=== PATIENT | female | born 1980 | race Caucasian/White ===

== ENCOUNTER 2022-05-26 12:10 | Emergency (ER) | payer MEDICAID, SELFPAY ==
--- NOTE | 2022-05-26 12:14 | EXP.UTC ---
Discharge Plan Disposition Patient Disposition: Home, Self-Care Condition: Good Prescriptions Prescriptions: New amoxicillin [amoxicillin] 500 mg tablet 500 mg PO TID 10 Days Qty: 30 0RF benzonatate [benzonatate] 100 mg capsule 100 mg PO TIDP PRN (Reason: Cough) Qty: 30 0RF methylprednisolone 4 mg Tablets,Dose Pack 4 mg PO DIRECTED Qty: 21 0RF Referrals Follow up/Referrals: Julian Morales MD [Primary Care Provider] - See instructions Activity Restrictions/Add. Instructions Additional Instructions/Restrictions: Drink plenty of fluids. Take tylenol or ibuprofen for pain or fever. Take the medications as directed. Follow up with your regular doctor. GO TO THE ER FOR ANY WORSENING SYMPTOMS Clinical Impressions Clinical Impression: Otitis media, Bronchitis Instructions Patient Instructions: Middle Ear Infection, DI for Sinusitis Discharge ED Provider: Ramakrishna Arce [facility] [place] [facility] [place] General Stated complaint: ear pain,headache Time Seen by Provider: 05/26/22 12:14 History of Present Illness Provider Complaint: She states that she has had bilateral ear pain, sore throat and a productive cough for the past 3 days. Related Data Previous Rx's Medication Instructions Recorded amoxicillin 500 mg tablet 500 mg PO TID 10 days #30 tabs 05/26/22 benzonatate 100 mg capsule 100 mg PO TIDP PRN Cough #30 caps 05/26/22 methylprednisolone 4 mg tablets in 4 mg PO DIRECTED #21 tabs 05/26/22 a dose pack Allergies Allergy/AdvReac Type Severity Reaction Status Date / Time No Known Allergies Allergy Verified 05/26/22 12:43 [facility] Disclaimer: The information contained in this section may have been updated after the patient was seen, as this information can be updated by other users. Social History Smoking Status: Never smoker alcohol intake: never current occupational status: employed Travel in the last 8 weeks: None ROS Obtained: Yes All systems reviewed & no additional complaints except as documented Constitutional Constitutional: Reports chills and Reports fever(s) Eyes Eyes: Denies eye discharge ENT Ears, Nose, Mouth, and Throat: Reports as per HPI Cardiovascular Cardiovascular: Denies chest pain Respiratory Respiratory: Denies chest congestion and Reports cough Gastrointestinal Gastrointestingal: Reports nausea; Denies abdominal pain, constipation, cramping, diarrhea or vomiting Musculoskeletal Musculoskeletal: Denies arthralgias Integumentary/Breasts Skin/Breast: Denies rash Neurologic Neurologic: Denies paresthesias Physical Exam General General appearance: alert and in no apparent distress Head Head exam: atraumatic, normocephalic and normal inspection Eye Eye exam: Present normal appearance, PERRL and EOMI ENT ENT exam: Present mucous membranes moist and normal external ear exam Expanded ENT Exam TM/Canal exam: Bilateral TM: erythema and bulging Nose exam: Absent sinus tenderness Mouth exam: Present normal external inspection; Absent drooling Teeth exam: Present normal inspection Throat exam: Present tonsillar erythema, tonsillomegaly and tonsillar exudate Neck Neck exam: Present normal inspection, full ROM and trachea midline; Absent tenderness, meningismus or lymphadenopathy Chest Chest inspection: Present normal inspection and symmetric chest wall rise; Absent tenderness Respiratory Respiratory exam: Present normal lung sounds bilaterally; Absent respiratory distress, wheezes or stridor Cardiovascular Cardiovascular exam: Present regular rate and normal rhythm; Absent systolic murmur or diastolic murmur Abdominal Exam Abdominal exam: Present soft and normal bowel sounds; Absent distention, tenderness, guarding, rebound or rigidity Extremities Exam Extremities exam: Present normal inspection and normal capillary refill; Absent calf tenderness Back Exam Back exam: Present normal inspection and full R
[2022-05-26 12:15] VITALS: BP 136/86; PULSE 118; RESP 16; TEMP 37.2; O2SAT 99; BMI 30.7
[2022-05-26 12:35] VITALS: BP 136/86; PULSE 118; RESP 16; TEMP 37.2; O2SAT 99; BMI 10.8
[2022-05-26 12:45] LABS: UTC Strep Screen (Rapid) Negative (Negative)
[2022-05-26 13:18] VITALS: BP 136/86; PULSE 118; RESP 16; TEMP 37.2; O2SAT 99
== END 2022-05-26 13:18 | disposition home or self-care (01) ==
PROVIDERS: Emergency Provider Nurse Practitioner Family; PCP Internal Medicine Adolescent Medicine
DX: H66.93 Otitis media, unspecified, bilateral (principal); J40 Bronchitis, not specified as acute or chronic
CPT/HCPCS: 87880; 99212; 99213; G0463

== ENCOUNTER 2022-05-31 08:09 | Emergency (ER) | payer MEDICAID, SELFPAY ==
[2022-05-31 08:14] VITALS: BP 141/101; PULSE 109; RESP 18; O2SAT 99; BMI 31.4
--- NOTE | 2022-05-31 08:17 | XR_ITS ---
FINAL REPORT CLINICAL HISTORY: CONGESTION AND RIB PAIN FINDINGS: A PA view of the chest and oblique views of the right ribs were obtained. There is no prior exam for comparison. The cardiac and mediastinal silhouettes are within normal limits. The lungs are clear. There is no pneumothorax. Oblique views of the right ribs reveal no displaced rib fracture. IMPRESSION: No acute right rib fracture and no pneumothorax. Reviewed, Interpreted and Dictated by Evelyn Hammer MD Transcribed by Marta Small Authenticated and [facility]
[2022-05-31 08:20] VITALS: BP 141/101; PULSE 109; RESP 18; TEMP 36.8; O2SAT 99; BMI 31.3
--- NOTE | 2022-05-31 08:49 | EXP.UTC ---
Discharge Plan Disposition Patient Disposition: Home, Self-Care Condition: Good Prescriptions Prescriptions: New azithromycin [Zithromax Z-Won] 250 mg tablet See Rx Instructions .ROUTE .COMPLEX 5 Days Qty: 6 0RF Rx Instructions: For 250 mg dose pack: take 500 mg today (day 1), then 250 mg for 4 days (days 2-5) guaifenesin [Mucinex] 600 mg tablet extended release 12hr 600 mg PO BID PRN (Reason: cough) Qty: 20 0RF fluticasone propionate [Flonase Allergy Relief] 50 mcg/actuation spray,suspension 1 spray intranasal DAILY Qty: 16 0RF Rx Instructions: administer into each nostril No Action amoxicillin [amoxicillin] 500 mg tablet 500 mg PO TID 10 Days Qty: 30 0RF benzonatate [benzonatate] 100 mg capsule 100 mg PO TIDP PRN (Reason: Cough) Qty: 30 0RF methylprednisolone 4 mg Tablets,Dose Pack 4 mg PO DIRECTED Qty: 21 0RF Referrals Follow up/Referrals: Jenn Huffman APRN [Primary Care Provider] - See instructions Activity Restrictions/Add. Instructions Additional Instructions/Restrictions: Start antibiotic today. Be sure to complete entire prescription even if feeling better Monitor temp. Tylenol every 4 hours as needed and / or ibuprofen every 6 hours as needed ( As long as your primary care physician has told you that it ok to take both. For fever/aches/pains ER if no less than 101 despite Tylenol or Motrin Humidifier/vaporizer or hot steamy shower Inhaler every 4-6 hours as needed like we discussed. If unsure how to use it, ask pharmacist to demonstrate how. Should help open airways and improve cough, wheezing, and shortness of breath Mucinex for your cough and cough suppressant only at night. Be sure to drink lots of water. Follow up IMMEDIATELY for new or worsening of symptoms OR no noticeable improvement over the next 48-72 hours. 911 immediately for any life threatening symptoms such as chest pain or difficulty breathing Clinical Impressions Clinical Impression: Bronchitis Sinusitis Qualifiers: Sinusitis location: unspecified location Chronicity: unspecified Qualified Code(s): J32.9 - Chronic sinusitis, unspecified Stand Alone Forms Stand Alone Forms: Work/School Release Instructions Patient Instructions: Sinusitis, DI for Sinusitis Discharge ED Provider: Candy Wray [facility] HPI General Stated complaint: cough,ribs hurt Mode of Arrival: Ambulatory Source of Information: Patient Limitations: No Limitations Time Seen by Provider: 05/31/22 08:49 Description of Symptoms (Recalled from Triage Doc. by RN): PATIENT C/O COUGH AND RIB PAIN. SHE STATES SHE WAS TREATED FOR BRONCHITIS AND A SINUS INFECTION ON FRIDAY BUT IS NOT BETTER HEENT Symptoms (Recalled from RN notes): No Resp Symptoms (Recalled from RN notes): Yes Skin Symptoms (Recalled from RN notes): No MS Symptoms (Recalled from RN notes): Yes Functional Status (Recalled from RN notes): WNL History of Present Illness Provider Complaint: Patient states that she was seen and treated on Friday for Bronchitits and sinusitis States that she has continued to have cough and and feels like she may have pulled something in her right ribs States that she has pain in right ribs with movement and cough Related Data Previous Rx's Medication Instructions Recorded amoxicillin 500 mg tablet 500 mg PO TID 10 days #30 tabs 05/26/22 benzonatate 100 mg capsule 100 mg PO TIDP PRN Cough #30 caps 05/26/22 methylprednisolone 4 mg tablets in 4 mg PO DIRECTED #21 tabs 05/26/22 a dose pack azithromycin 250 mg tablet See Rx Instructions PO .COMPLEX 5 05/31/22 (Zithromax Z-Won) days #6 tabs fluticasone propionate 50 1 spray intranasal DAILY #16 grams 05/31/22 mcg/actuation nasal spray,suspension (Flonase Allergy Relief) guaifenesin 600 mg tablet, 600 mg PO BID PRN cough #20 tabs 05/31/22 extended release 12 hr (Mucinex) Allergies Allergy/AdvReac Type Severity Reaction Status Date /
[2022-05-31 09:20] VITALS: BP 141/101; PULSE 109; RESP 18; TEMP 36.8; O2SAT 99
== END 2022-05-31 09:46 | disposition home or self-care (01) ==
PROVIDERS: Emergency Provider Nurse Practitioner; PCP Nurse Practitioner Family
DX: J40 Bronchitis, not specified as acute or chronic (principal); J32.9 Chronic sinusitis, unspecified
CPT/HCPCS: 71101; 99212; 99213; G0463

== ENCOUNTER 2023-03-30 14:38 | Emergency (ER) | payer MEDICAID, SELFPAY ==
[2023-03-30] VITALS (8 sets, daily range): BP systolic 153–177; BP diastolic 97–113; PULSE 99–144; RESP 13–26; TEMP 36.7–36.8; O2SAT 96–100; BMI 31.4
--- NOTE | 2023-03-30 14:47 | XR_ITS ---
PROCEDURE INFORMATION: Exam: XR Left Wrist Exam date and time: 03/30/2023 2:52 PM Age: 42 years old Clinical indication: Injury or trauma; Other: Dog bite; Wrist and hand; Left TECHNIQUE: Imaging protocol: Radiologic exam of the left wrist. Views: 3 or more views. COMPARISON: CR XR FOREARM LT 2V 03/30/2023 2:52 PM FINDINGS: Bones/joints: Lucencies in the distal aspect of the long finger metacarpal consistent with minimally displaced acute fracture. .. Soft tissues: Soft tissue swelling of the hand IMPRESSION: Lucencies in the distal aspect of the long finger metacarpal consistent with minimally displaced acute fracture. ..
--- NOTE | 2023-03-30 14:47 | XR_ITS ---
PROCEDURE INFORMATION: Exam: XR Left Hand Exam date and time: 03/30/2023 2:52 PM Age: 42 years old Clinical indication: Injury or trauma; Other: Dog bite; Wrist and hand; Left TECHNIQUE: Imaging protocol: Radiologic exam of the left hand. Views: 3 or more views. COMPARISON: CR XR FOREARM LT 2V 03/30/2023 2:52 PM FINDINGS: Bones/joints: There are lucencies in the distal aspect of the long finger metacarpal which may represent acute nondisplaced fractures.. Soft tissues: Soft tissue swelling of the hand IMPRESSION: There are lucencies in the distal aspect of the long finger metacarpal which may represent acute nondisplaced fractures..
--- NOTE | 2023-03-30 14:47 | XR_ITS ---
PROCEDURE INFORMATION: Exam: XR Left Forearm Exam date and time: 03/30/2023 2:52 PM Age: 42 years old Clinical indication: Injury or trauma; Other: Dog bite; Wrist and hand; Left TECHNIQUE: Imaging protocol: Radiologic exam of the left forearm. Views: 2 views. COMPARISON: CR XR HAND LT MIN 3V 03/30/2023 2:52 PM FINDINGS: Bones/joints: Minimally displaced Fracture in the distal aspect of the long finger metacarpal.. No fracture of the radial or ulnar shaft Soft tissues: Soft tissue swelling of the hand IMPRESSION: Minimally displaced Fracture in the distal aspect of the long finger metacarpal..
[2023-03-30 14:56] LABS: Basophils # 0.1 K/mm3 (0-0.2); Basophils % 1.2 % (0.1-2.0); Eosinophils # 0.2 K/mm3 (0.0-0.4); Eosinophils % 2.3 % (0.1-12.0); Hematocrit 45.3 % (37.0-47.0); Hemoglobin 15.6 g/dL (12.2-16.2); Lymphocytes # 2.7 K/mm3 (0.7-4.5); Lymphocytes % 29.3 % (10-50); Mean Corpuscular HGB Conc 34.3 g/dL (31.8-35.4); Mean Corpuscular Hemoglobin 33.5 pg (27.0-31.2); Mean Corpuscular Volume 97.6 fl (81-99); Mean Platelet Volume 7.9 fl (7.4-10.4); Monocytes # 0.2 K/mm3 (0.1-1.0); Monocytes % 2.2 % (1.7-9.3); Neutrophils # 6.1 K/mm3 (1.8-7.8); Platelet Count 339 K/mm3 (142-424); Red Blood Count 4.65 M/mm3 (4.20-5.40); Red Cell Distribution Width 13.2 % (11.5-17.5); White Blood Count 9.4 K/mm3 (4.8-10.8)
--- NOTE | 2023-03-30 14:56 | PC.NURSE ---
rad at bedside
[2023-03-30 15:01] LABS: Chloride 104 mmol/L (98-107); Potassium 3.6 mmoL/L (3.5-5.1); Sodium 138 mmol/L (136-145)
[2023-03-30 15:03] LABS: Blood Urea Nitrogen 15 mg/dl (7-17); Creatinine Clearance Estimated 114 mL/min (50-200); Estimated Glomerular Filt Rate 69 ml/min (>60); GFR (African American) 83 ML/MIN (>60)
[2023-03-30 15:04] LABS: Alanine Aminotransferase 36 U/L (12-78); Albumin Level 4.6 g/dl (3.5-5.0); Albumin/Globulin Ratio 1.4 (1.1-1.8); Alkaline Phosphatase 84 U/L (38-126); Anion Gap 12.6 mEq/L (5-15); Aspartate Amino Transferase 42 U/L (14-36); Bilirubin,Total 0.4 mg/dl (0.2-1.3); Carbon Dioxide 25 mmol/L (22.0-30.0); Globulin 3.3 g/dL (1.3-3.2); Total Protein,Serum 7.9 g/dl (6.3-8.2)
[2023-03-30 15:05] LABS: Calcium 9.5 mg/dl (8.4-10.2); Glucose 117 mg/dl (74-100)
--- NOTE | 2023-03-30 15:12 | HMH.EDGENADL ---
Discharge Plan Disposition Patient Disposition: Xfer Short-Term Hosp Prescriptions Prescriptions: No Action amoxicillin [amoxicillin] 500 mg tablet 500 mg PO TID 10 Days Qty: 30 0RF benzonatate [benzonatate] 100 mg capsule 100 mg PO TIDP PRN (Reason: Cough) Qty: 30 0RF methylprednisolone 4 mg Tablets,Dose Pack 4 mg PO DIRECTED Qty: 21 0RF azithromycin [Zithromax Z-Won] 250 mg tablet See Rx Instructions .ROUTE .COMPLEX 5 Days Qty: 6 0RF Rx Instructions: For 250 mg dose pack: take 500 mg today (day 1), then 250 mg for 4 days (days 2-5) guaifenesin [Mucinex] 600 mg tablet extended release 12hr 600 mg PO BID PRN (Reason: cough) Qty: 20 0RF fluticasone propionate [Flonase Allergy Relief] 50 mcg/actuation spray,suspension 1 spray intranasal DAILY Qty: 16 0RF Rx Instructions: administer into each nostril Referrals Follow up/Referrals: Provider,Referral, MD [Primary Care Provider] - See instructions Clinical Impressions Clinical Impression: Fingertip amputation, Fracture of metacarpal Dog bite of left hand Qualifiers: Encounter type: initial encounter Qualified Code(s): S61.452A - Open bite of left hand, initial encounter Laceration of hand, left Qualifiers: Encounter type: initial encounter Foreign body presence: without foreign body Qualified Code(s): S61.412A - Laceration without foreign body of left hand, initial encounter Instructions Patient Instructions: DI for Skin Abscess Discharge ED Provider: Francisco Srniivasan General Adult HPI <Francisco Srinivasan MD - Last Filed: 03/30/23 15:43> General Chief complaint: Skin/Abscess/Foreign Body Stated complaint: Hand Trauma Time Seen by Provider: 03/30/23 14:50 History of Present Illness HPI narrative: 42-year-old female history of hypertension not currently on anticoagulation presenting with dog bite to her left hand and forearm. This happened just prior to arrival. Patient does not know the dog, does not know if is vaccinated. Patient does not remember last tetanus. Patient has severe lacerations to her left hand and inability to bend left ring finger. Significant pain in her palm. No other trauma sustained. Related Data Previous Rx's Medication Instructions Recorded amoxicillin 500 mg tablet 500 mg PO TID 10 days #30 tabs 05/26/22 benzonatate 100 mg capsule 100 mg PO TIDP PRN Cough #30 caps 05/26/22 methylprednisolone 4 mg tablets in 4 mg PO DIRECTED #21 tabs 05/26/22 a dose pack azithromycin 250 mg tablet See Rx Instructions PO .COMPLEX 5 05/31/22 (Zithromax Z-Won) days #6 tabs fluticasone propionate 50 1 spray intranasal DAILY #16 grams 05/31/22 mcg/actuation nasal spray,suspension (Flonase Allergy Relief) guaifenesin 600 mg tablet, 600 mg PO BID PRN cough #20 tabs 05/31/22 extended release 12 hr (Mucinex) Allergies Allergy/AdvReac Type Severity Reaction Status Date / Time No Known Allergies Allergy Verified 05/26/22 12:43 PFS <Francisco Srinivasan MD - Last Filed: 03/30/23 15:43> PFS Disclaimer: The information contained in this section may have been updated after the patient was seen, as this information can be updated by other users. Social History (Updated 05/26/22 @ 18:49 by Ramakrishna Arce APRN) Smoking Status: Current every day smoker alcohol intake: never current occupational status: employed Travel in the last 8 weeks: None <Francisco Srinivasan MD - Last Filed: 03/30/23 15:43> ROS Obtained: Yes All systems reviewed & no additional complaints except as documented Physical Exam <Francisco Srinivasan MD - Last Filed: 03/30/23 15:43> General General appearance: alert and in distress (pain) Head Head exam: atraumatic and normocephalic Eye Eye exam: Present normal appearance, PERRL and EOMI ENT ENT exam: Present mucous membranes moist Neck Neck exam: Present normal inspection, full ROM and trachea midline Respiratory Respiratory exam: Absent respiratory distress, wheezes, stridor, ac
--- NOTE | 2023-03-30 15:35 | PC.NURSE ---
Called [facility] wants to see about transferring to hand surgery. Gave them pt demographics and transfer details. States they will call back. Images power-shared to [facility] & disc prepared.
--- NOTE | 2023-03-30 16:39 | PC.NURSE ---
Called [facility] to check on status of call from hand surgery. States you called at 330 and we got the images 30 minutes ago and the surgeons need time to review those images. They'll call you back when they review it . Dr. Will was informed of this and he states Well I don't need to take to hand surgery, I can talk to the transfer attending .
--- NOTE | 2023-03-30 16:46 | PC.NURSE ---
Dr. Will s/w Dr. Nunez, transfer Attending at [facility]
--- NOTE | 2023-03-30 16:51 | PC.NURSE ---
pt accepted to [facility] ER per Dr. Malone
--- NOTE | 2023-03-30 17:20 | PC.NURSE ---
Dr. Will at [facility] to update pt on POC.
--- NOTE | 2023-03-30 17:46 | PC.NURSE ---
attempting to call EMS
--- NOTE | 2023-03-30 17:49 | PC.NURSE ---
applied soaked gauze, wrapped with kerlix, and placed on a slab of ortho glass. Pt reports her pain is decreased to hand. [facility] notified for pt transport to [facility]. Report given to Boom MAJOR
--- NOTE | 2023-03-30 17:49 | PC.NURSE ---
EMS aware of need for transport.
== END 2023-03-30 18:32 | disposition short-term general hospital (02) ==
PROVIDERS: Emergency Medicine; Emergency Provider Emergency Medicine
DX: S51.852A Open bite of left forearm, initial encounter; S68.625A Partial traumatic transphalangeal amputation of left ring finger, initial encounter; S66.325A Laceration of extensor muscle, fascia and tendon of left ring finger at wrist and hand level, initial encounter; I10 Essential (primary) hypertension; F17.210 Nicotine dependence, cigarettes, uncomplicated; Z23 Encounter for immunization; W54.0XXA Bitten by dog, initial encounter
CPT/HCPCS: 73090; 73110; 73130; 80053; 85025; 90375; 90675; 90715; 96365; 96372; 96375; 96376; 99285; J0690

== ENCOUNTER 2023-04-05 19:32 | Emergency (ER) | payer MEDICAID, SELFPAY ==
[2023-04-05 19:34] VITALS: BP 148/89; PULSE 88; RESP 20; TEMP 36.8; O2SAT 98; BMI 30.7
--- OUTSIDE RECORDS SUMMARY | 2023-04-05 19:40 | XMS_ITS | Patient Health Record ---
Author Name Unknown Organization [facility] Address [address] [place] [address] Care Team Providers Care Software Project Manager Name Role Phone Julian Morales Primary Care Provider [phone] Jenn Sharma Unavailable [phone] Julian Morales Unavailable Unavailable eLxus Andrade Unavailable [phone] Lexus Reyez Unavailable [phone] ALLERGIES No Known Allergies REASON FOR REFERRAL Reason Dr. Poole Diagnosis 1 Clavus (L84) Referral Organization [facility] Referring Provider First Name Jenn Referring Provider Last Name Zachary Referring Provider Speciality Family Pra ctice Referred Provider Karen Poole Referred Provider Specialty Podiatry - S urgical Chiropody General Notes Rupali Galvan 04/12 02:41:40 PM EST > sent/ they will call patient/gave patient their number to follow up Referral Priority Routine MEDICATIONS Medication SIG (Take, Route, Frequency, Duration) Notes Start Date End Date Status metroNIDAZOLE topical 0.75% 1 patrice applie d topically once a day (at bedtime) for 30 days 07/25/2022 Active hydrOXYzine hydrochloride hydrochloride 25 mg 1 tab(s) orally 2 times a day PRN for 30 days 02/21/2022 Active Xyzal 5 mg 1 tab(s) orally inga y for 30 days Active lisinopril 20 mg
--- NOTE | 2023-04-05 20:04 | HMH.EDGENADL ---
Discharge Plan Disposition Patient Disposition: Home, Self-Care Prescriptions Prescriptions: No Action amoxicillin [amoxicillin] 500 mg tablet 500 mg PO TID 10 Days Qty: 30 0RF benzonatate [benzonatate] 100 mg capsule 100 mg PO TIDP PRN (Reason: Cough) Qty: 30 0RF methylprednisolone 4 mg Tablets,Dose Pack 4 mg PO DIRECTED Qty: 21 0RF azithromycin [Zithromax Z-Won] 250 mg tablet See Rx Instructions .ROUTE .COMPLEX 5 Days Qty: 6 0RF Rx Instructions: For 250 mg dose pack: take 500 mg today (day 1), then 250 mg for 4 days (days 2-5) guaifenesin [Mucinex] 600 mg tablet extended release 12hr 600 mg PO BID PRN (Reason: cough) Qty: 20 0RF fluticasone propionate [Flonase Allergy Relief] 50 mcg/actuation spray,suspension 1 spray intranasal DAILY Qty: 16 0RF Rx Instructions: administer into each nostril Referrals Follow up/Referrals: Jenn Sharma APRN [Primary Care Provider] - See instructions Activity Restrictions/Add. Instructions Additional Instructions/Restrictions: Given the extent of your injuries your wound appears to be healing well there is still adequate capillary refill and vascular supply to your finger with some intact sensation there is no pathologic redness or pus coming from the wound and the drainage is serosanguineous. You have an appointment in [address] Naranjo with [facility] plastic surgery I would keep that appointment. Given your discontentment without group we have also given you follow-up appoint with Dr. Denis and Nelly if you'd wish to follow up with them as well. The 3 days of opiates is a standard prescription after an acute injury and he may take Tylenol or ibuprofen as needed for your symptoms. Clinical Impressions Clinical Impression: Encounter for assessment of wound Discharge ED Provider: Aftab Moreau General Adult HPI General Stated complaint: AO 03/31 ring fingr LT hand swelling Time Seen by Provider: 04/05/23 19:46 History of Present Illness HPI narrative: Patient is a 42-year-old female who had a dog bite on 1119 was transferred [facility] was evaluated by plastic surgery and had surgical repair of her left index finger was prescribed Augmentin and pain medication and she presents today to the emergency department for wound reassessment and pain. She states she was very unhappy with the care that she had at [facility] mainly because she was discharged at 2 AM and states I will not go back to them. Related Data Previous Rx's Medication Instructions Recorded amoxicillin 500 mg tablet 500 mg PO TID 10 days #30 tabs 05/26/22 benzonatate 100 mg capsule 100 mg PO TIDP PRN Cough #30 caps 05/26/22 methylprednisolone 4 mg tablets in 4 mg PO DIRECTED #21 tabs 05/26/22 a dose pack azithromycin 250 mg tablet See Rx Instructions PO .COMPLEX 5 05/31/22 (Zithromax Z-Won) days #6 tabs fluticasone propionate 50 1 spray intranasal DAILY #16 grams 05/31/22 mcg/actuation nasal spray,suspension (Flonase Allergy Relief) guaifenesin 600 mg tablet, 600 mg PO BID PRN cough #20 tabs 05/31/22 extended release 12 hr (Mucinex) Allergies Allergy/AdvReac Type Severity Reaction Status Date / Time No Known Allergies Allergy Verified 05/26/22 12:43 [facility] Disclaimer: The information contained in this section may have been updated after the patient was seen, as this information can be updated by other users. Social History (Updated 05/26/22 @ 18:49 by Ramakrishna Arce APRN) Smoking Status: Current every day smoker alcohol intake: never current occupational status: employed Travel in the last 8 weeks: None ROS Obtained: Yes All systems reviewed & no additional complaints except as documented Physical Exam General General appearance: alert Respiratory Respiratory exam: Present normal lung sounds bilaterally Cardiovascular Cardiovascular exam: Present regular rate Extremities Exam Ex
[2023-04-05 20:22] VITALS: BP 148/89; PULSE 90; RESP 18; TEMP 36.6; O2SAT 100
--- NOTE | 2023-04-05 20:25 | PC.NURSE ---
Patient requested 2nd opinion on hand surgeon so we gave her information on [facility]. Patient voiced understanding on importance of following up with her surgeron on 4 days and what problems to look out for. Patient left ER walking on own.
== END 2023-04-05 20:34 | disposition home or self-care (01) ==
PROVIDERS: Emergency Provider Student in an Organized Health Care Education/Training Program; PCP Nurse Practitioner Family
DX: R22.31 Localized swelling, mass and lump, right upper limb (principal); F17.210 Nicotine dependence, cigarettes, uncomplicated; Z48.89 Encounter for other specified surgical aftercare
CPT/HCPCS: 99282

== ENCOUNTER 2025-02-27 13:13 | Emergency (ER) | payer MEDICAID, SELFPAY ==
--- OUTSIDE RECORDS SUMMARY | 2023-11-28 05:30 | XMS_ITS ---
Author Organization [facility] Address [address] [place] [address] Care Team Providers Care Hoop Punch And Coiler Operator Helper Name Role Phone Julian Morales Primary Care Provider [phone] Jenn Sharma Unavailable [phone] Julian Morales Unavailable Unavailable Lexus Reyez Unavailable [phone] REASON FOR VISIT Med Check Encounters Encounter Location Date Provider Diagnosis [facility] [address] [facility] [address] [place] [address] 11/28/2023 Lexus Reyez Plan Of Treatment No Information Progress Notes * Kiara RICHARDSONB: 9[birth year] (44 yo F)Acc No.[id number]:11/28/2023 Progress Notes Patient: Parisa AWKEFIELD Provider: CARLOS Rosales :1980 A ge:43 Y S ex:Female Date:11/28/2023 Address:[address], [place] Pcp:Julian Morales Subjective: * Chief Complaints: * 1 . Med Check. * Medical History: Objective: * Vitals: Assessment: Plan: * Treatment: * * Electronic signature of Alesia Reyez PA-C on 02/27/2025 at 01:26 PM EDT Sign off status: Pending * Provider: CARLOS Rosales Date: 0 11/28/2023 Generated for Printi ng/Faxing/eTransmitting on: 1 01:26 PM EDT
--- OUTSIDE RECORDS SUMMARY | 2024-08-14 17:30 | XMS_ITS ---
Author Organization [facility] Address [address] [facility] [address] [place] [address] Care Team Providers Care Checkout Operator Name Role Phone Julian Morales Primary Care Provider [phone] Jenn Sharma Unavailable [phone] Julian Morales Unavailable Unavailable Migration, Provider Unavailable Unavailable REASON FOR VISIT [facility] To [facility] Conversion Encounter Medications Medication SIG (Take, Route, Frequency, Duration) Notes Start Date End Date Status metroNIDAZOLE 0.75 % 1 patrice applied topic ally once a day (at bedtime); Duration: 30 days 07/25/2022 Active Xyzal Allergy 24HR 5 MG 1 tab(s) orally daily; Duration: 30 days Active Escitalopram Oxalate 10 MG 1 tab(s) oral ly once a day; Duration: 30 days 02/21/2022 Active hydrOXYzine HCl 25 MG 1 tab(s) orally 2 times a day PRN; Duration: 30 days 02/21/2022 Active Ibuprofen 800 MG 1 tab(s) orally 3 ti mes a day; Duration: 30 day(s) prn Active Lisinopril 20 MG 1 tab(s) orally once a day; Duration: 30 day(s) Active Encounters Encounter Location Date Provider Diagnosis [facility] [address] [facility] [address] [place] [address] 08/14/2024 Provider Migration Rosacea L71.9 ; Strain of lumbar region, initial encounter S39.012A ; Seasonal allergies J30.2 and ADAN (generalized anxiety disorder) F41.1 Assessments Encounter Date Diagnosis (ICD Code) Assessment Notes Treatment Notes Treatment Clinical Notes Section Notes 08/14/2024 Rosacea (ICD-10 - L71.9) 08/14/2024 Strain of lumbar region, initial encounter (ICD-10 - S39.012A) 08/14/2024 Seasonal allergies (ICD-10 - J30.2) 08/14/2024 ADAN (generalized anxiety disorder) (ICD-10 - F41.1) Plan Of Treatment Medication Medication Name Sig Start Date Stop Date Notes metroNIDAZOLE 0.75 % 1 patrice applied topic ally once a day (at bedtime); Duration: 30 days 07/25/2022 Xyzal Allergy 24HR 5 MG 1 tab(s) orally daily; Duration: 30 days Escitalopram Oxalate 10 MG 1 tab(s) oral ly once a day; Duration: 30 days 02/21/2022 hydrOXYzine HCl 25 MG 1 tab(s) orally 2 times a day PRN; Duration: 30 days 02/21/2022 Ibuprofen 800 MG 1 tab(s) orally 3 ti mes a day; Duration: 30 day(s) prn Progress Notes * Kiara BELTRANB: 981 (44 yo F)Acc No.[id number]:08/14/2024 Patient: Xu WAKEFIELDa Provider: Rimma Snell :1980 A ge:44 Y S ex:Female Date:08/14/2024 Address:[address] [place] [address], [facility], [id number] Pcp:Julian Morales Subjective: * Chief Complaints: * 1 . [facility] Conversion Encounter. * Medical History: * Medications: T aking Lisinopril 20 MG Tablet 1 tab(s) orally once a day Objective: * Vitals: Assessment: * Assessment: 1. R osacea - L71.9 (Primary) 2 . S train of lumbar region, initial encounter - S39.012A 3 . S easonal allergies - J30.2 4 . G AD (generalized anxiety disorder) - F41.1 Plan: * Treatment: 2. S train of lumbar region, initial encounter Refill Ibuprofen Tablet, 800 MG, 1 tab(s), orally, 3 times a day, 30 day(s), 90 Tablet, Refills 0, Notes to Pharmacist: prn. 3. S easonal allergies Refill Xyzal Allergy 24HR Tablet, 5 MG, 1 tab(s), orally, daily, 30 days, 30, Refills 11. ? 4. G AD (generalized anxiety disorder) Refill Escitalopram Oxalate Tablet, 10 MG, 1 tab(s), orally, once a day, 30 days, 30, Refills 2;?Refill hydrOXYzine HCl Tablet, 25 MG, 1 tab(s), orally, 2 times a day PRN, 30 days, 60, Refills 2. * * Electronic signature of Prov ider Migration on 02/27/2025 at 01:27 PM EDT Sign off status: Pending * Provider: Rimma walton Migration Date: 0 08/14/2024 Generated for Devorah lim/Alec/Shae on: 1 01:27 PM EDT
[2025-02-27 13:20] VITALS: BP 162/116; PULSE 104; RESP 20; TEMP 36.8; O2SAT 99; BMI 32.3
--- NOTE | 2025-02-27 13:20 | ED_ITS ---
<Statement entered by Aftab Moreau MD - 02/27/25 14:27> I was consulted by the KENDRICK, and we discussed the complexity of the problems being addressed. I approved the treatment and management plan for this patient's care in the emergency department, thus performing a substantive portion of the medical decision making. Aftab Moreau MD, ANGELO, FACEP Discharge Plan Disposition Patient Disposition: Home, Self-Care Condition: Good Prescriptions Prescriptions: No Action amoxicillin [amoxicillin] 500 mg tablet 500 mg PO TID 10 Days Qty: 30 0RF benzonatate [benzonatate] 100 mg capsule 100 mg PO TIDP PRN (Reason: Cough) Qty: 30 0RF methylprednisolone 4 mg Tablets,Dose Pack 4 mg PO DIRECTED Qty: 21 0RF azithromycin [Zithromax Z-Won] 250 mg tablet See Rx Instructions .ROUTE .COMPLEX 5 Days Qty: 6 0RF Rx Instructions: For 250 mg dose pack: take 500 mg today (day 1), then 250 mg for 4 days (days 2-5) guaifenesin [Mucinex] 600 mg tablet extended release 12hr 600 mg PO BID PRN (Reason: cough) Qty: 20 0RF fluticasone propionate [Flonase Allergy Relief] 50 mcg/actuation spray,suspension 1 spray intranasal DAILY Qty: 16 0RF Rx Instructions: administer into each nostril Referrals Follow up/Referrals: Jenn Sharma APRN [Primary Care Provider, Medical] - See instructions Activity Restrictions/Add. Instructions Additional Instructions/Restrictions: Please return to the emergency department with any worsening signs or symptoms. Please take all your at home medication as prescribed. Please follow-up with your PCP. Clinical Impressions Clinical Impression: History of alcohol use, Medical clearance for incarceration Instructions Patient Instructions: DI for Alcohol Use Disorder Print Language Print Language: Cape Verdean Discharge ED Provider: Aftab Moreau General Adult HPI General Chief complaint: Medical Clearance Stated complaint: medical clearance Time Seen by Provider: 02/27/25 13:19 Source of Information: Patient and Law Enforcement Limitations: No Limitations History of Present Illness HPI narrative: 44-year-old female presents to the emergency department via PD, for acute alcohol intoxication. Patient at my examination at the bedside is GCS 15 alert oriented cooperative with exam, she adamantly denies any fever chills chest pain shortness of breath, no abdominal pain, no nausea no vomiting no constipation no diarrhea, no urinary type symptomatology, patient is a current everyday smoker, weekly alcohol use, last use was 8 AM , patient states she drank half a pint , states that she does this around 3 to 4 days a week. She does tell me it is not as much alcohol as I used to do , denies any illicit drug use. Initial triage vitals notable for tachycardia otherwise unremarkable, patient tells me she has past medical history consistent with hypertension and surgical history consistent with tubal ligation, however patient tells me she takes no medications daily at home. Please note that above description of symptoms, in this electronic medical rec ord under categorization of recalled from ER triage doctor by RN are reflective of an initial nursing assessment, however, is not reflective of my full history and physical exam that was personally taken and clarified. Consequentially, this preceding description of symptoms, which may include the patient's categorized chief complaint in the EMR, do not reflect my personal clinical impression, and the ultimate description of history of present illness and patient stated complaints should be deferred to this section of the note. Unless stated otherwise or congruent with this section of the note, additional signs, symptoms, or incongruence should be interpreted as inaccurate with my clinical impression. Onset (ago): unknown Related Data Previous Rx's ?Medication ?Instructions ?Recorded amoxicillin 500 mg tablet 500 mg PO TID 10 days #30 ta bs 05/26/22 benzonatate 100 mg capsule 100 mg PO TIDP PRN Cough #3 0 caps 05/26/22 methylprednisolone 4 mg tablets in 4 mg PO DIRECTED #21 tabs 05/26/22 a dose pack azithromycin 250 mg tablet See Rx Instructions PO .COM PLEX 5 05/31/22 (Zithromax Z-Won) days #6 tabs fluticasone propionate 50 1 spray intranasal DAILY #16 grams 05/31/22 mcg/actuation nasal spray,suspension (Flonase Allergy Relief) guaifenesin 600 mg tablet, 600 mg PO BID PRN cough #20 tabs 05/31/22 extended release 12 hr (Mucinex) Allergies Allergy/AdvReac Type Severity Reaction Status Date / Time No Known Allergies Allergy Verified 05/26/22 12:43 [facility] Disclaimer: The information contained in this section may have been updated after the patient was seen, as this information can be updated by other users. Social History (Updated 05/26/22 @ 18:49 by Ramakrishna rAce APRN) Smoking Status: Current every day smoker alcohol intake: never current occupational status: employed Travel in the last 8 weeks?: None Have you lived/traveled outside US in past 30 days?: No Contact w/someone who lives/traveled outside US past 30 days?: No Exposure to someone with infectious disease in past 14 days?: No Do you have a fever (greater than 100.4 F or 38 C)?: No Have you tested positive for COVID-19?: No Exposed to someone with COVID-19 in past 14 days?: No Do you have a sore throat?: No Do you have a cough?: No Do you have any weakness?: No Do you have any diarrhea?: No Are you experiencing any unusual bleeding?: No Do you have any muscle aches/pain?: No Do you have any abdominal pain?: No Are you experiencing loss of taste or smell?: No ROS Obtained: Yes All systems reviewed & no additional complaints except as documented Physical Exam General General appearance: alert, in no apparent distress and appears intoxicated Head Head exam: atraumatic and normocephalic Eye Eye exam: Present PERRL and EOMI ENT ENT exam: Present mucous membranes moist Neck Neck exam: Present normal inspection Chest Chest inspection: Present normal inspection and symmetric chest wall rise Respiratory Respiratory exam: Present normal lung sounds bilaterally; Absent respiratory distress, wheezes or stridor Cardiovascular Cardiovascular exam: Present regular rate and normal rhythm Abdominal Exam Abdominal exam: Present soft; Absent tenderness, guarding, rebound or rigidity Extremities Exam Extremities exam: Present normal inspection and full ROM Neurological Exam Neurological exam: Present alert, oriented X3 and other (Moves extremities to command, GCS of 15, alert oriented to person place and time, follows commands, no gross sensation deficit.) Psychiatric Psychiatric exam: Present normal affect Skin Skin exam: Present warm and dry Medical Decision Making Medical Records Medical records reviewed: Yes I reviewed the patient's medical records. Screening: Per USPSTF and CDC recommendations, given the prevalence of disease in our region, it is our hospital?s policy to screen for HIV and viral Hepatitis for all patients aged 18 and over and those with ongoing risk factors. Macario Inquiry Pt receiving controlled substance: No Vital Signs: 02/27/25 13:20 Temperature 98.2 F Temperature Source Oral Pulse Rate [Left Radial] 104 H Respiratory Rate 20 Blood Pressure [Right Arm] 162/116 H Blood Pressure Mean [Right Arm] 131 02 Sat by Pulse Oximetry 99 Oxygen Delivery Method Room Air Medical Decision Narrative: 44-year-old female presents the emergency department for medical clearance via PD, differential diagnose include but not limited to, alcohol use disorder, substance use disorder, acute alcohol intoxication among others. I discussed this patient's case with the attending physician Dr. Moreau Patient the bedside has no acute signs or symptoms, she admits to drinking alcohol this morning, appears mildly intoxicated, appears to be at her baseline, patient tells me she is frequent alcohol user. See HPI for alcohol use frequency. Patient's tachycardia improved to around 90 bpm, at the bedside upon my examination and recheck of her vital signs, blood pressure improved to 146 systolic, patient tells me she will follow-up with her PCP. Patient is medically cleared for incarceration/senior living. Patient was given strict ED return precautions. She is remained hemodynamically stable throughout her time in the emergency department. Patient voiced understanding and agreement with current treatment plan/discharge plan. Critical Care Critical Care Time Critical Care Time: No
--- OUTSIDE RECORDS SUMMARY | 2025-02-27 13:27 | XMS_ITS | Clinical Summary ---
Author Organization Healthcare Address [address] [place] [address] Care Team Providers Care Brake Press Operator Name Role Phone Jenn Huffman MARICRUZ Primary Care Provider [phone] Allergies No known active allergies Medications levocetirizine (Xyzal) 5 MG tablet Take 1 tablet (5 mg) by mouth 1 (one) time each day. 03/20/2023 Active Active Problems Problem Noted Date Diagnosed Date Left hand pain 04/30/2023 Social History Tobacco Use Types Packs/Day Years Used Date Smoking Tobacco: Every Day Cigarettes 1 24.8 Started: 2000 Smokeless Tobacco: Never Tobacco Cessation:Ready to Q uit: Not Asked; Counseling Given: Not Answered Alcohol Use Standard Drinks/Week Comments Yes 7 (1 standard drink = 0.6 oz pur e alcohol) PHQ-2 Answer Date Recorded Patient Health Questionnaire-2 Score 0 04/30/2023 CAGE ASSESSMENT Answer Date Recorded Due to the following: Medical status 03/30/2023 Maximum number of drinks you had on a given occasion in the last month? 5 or more drinks 03/30/2023 How many alcoholic Beverages do you typically drink in a week? 0 - 7 per week 03/30/2023 Have you ever felt you shoul d CUT down on your drinking? 1 03/30/2023 Have you been ANNOYED by peo ple criticizing your drinking? 1 03/30/2023 Have you felt GUILTY about your drinking? 1 03/30/2023 Have you had a drink first t mona in the morning ([employer]) to steady your nerves or to get rid of a hangover? 1 03/30/2023 CAGE Questionnaire Score 4 023 Comments Unknown Sex and Gender Information Value Date Recorded Sex Assigned at Female 05/10/2023 3:24 AM EST Legal Sex Female 3:38 PM EST Gender Identity Female 05/10/2023 3:24 AM EST Sexual Orientation Straight 05/10/2023 3: 24 AM EST Last Filed Vital Signs Vital Sign Reading Time Taken Comments Blood Pressure 173/105 04/30/2023 4:29 PM EST Pulse 94 04/30/2023 4:29 PM EST Temperature 36.9 C (98.4 F) 03/30/2023 11:51 PM EST Respiratory Rate 17 03/31/2023 12:04 AM EST Oxygen Saturation 99% 04/30/2023 4:29 PM EST Inhaled Oxygen Concentration - - Weight 91.6 kg (202 lb) 04/30/2023 4:29 PM EST Height 167.6 cm (5' 6 ) 04/30/2023 4:29 PM EST Body Mass Index 32.6 04/30/2023 4:29 PM EST Plan of Treatment Health Maintenance Due Date Last Done Comments [facility]-/Child/Adol SDOH Screenings 1980 [facility]-Varicella Vaccines (1 of 2 - 13+ 2-dose series) 1993 [facility]- SDOH Screenings 1998 [facility]-Adult SDOH Screenings 1998 [facility]-Hepatitis B Vaccines (1 of 3 - 19+ 3-dose series) 1999 [facility]-Pap Smear 2001 HPV Vaccines (1 - 3-dose SCDM series) 2007 [facility]-Cervical Cancer Screening 2010 [facility]-HPV/Cotest 2010 [facility]-Depression Screening 04/30/2024 04/30/2023 [id number]-21 Vaccine ( season) 2025 [facility]-Influenza Vaccine (#1) 01/10/202503/05, 04/18/2016, 04/05/2015, Additional history exists [facility]-Zoster Vaccines (1 of 2) 2030 [facility]-DTaP,Tdap,and Td Vaccines (2 - Td or Tdap) 03/30/2033 03/30/2023 [facility]-HIV Screening Completed 03/30/2023 [facility]-Hepatitis C Screening Completed 03/30/2023 [facility]-Obesity Intervention Completed 04/30/2023, 04/12 [facility]-HIB Vaccines Aged Out No longer e ligible based on patient's age to complete this topic [facility]-Hepatitis A Vaccines Aged Out No longer eligible based on patient's age to complete this topic [facility]-IPV Vaccines Aged Out No longer e ligible based on patient's age to complete this topic [facility]-Pneumococcal Vaccine: Pediatrics (0 to 5 Years) and At-Risk Patients (6 to 49 Years) Aged Out No longer eligible based on patient's age to complete this topic [facility]-Rotavirus Vaccines Aged Out No lo nger eligible based on patient's age to complete this topic Procedures Procedure Name Priority Date/Time Associated Diagnosis Comments HEPATITIS C ANTIBODY - ED W/REFLEX TO HCV QUANT PCR STAT 03/30/2023 9:03 PM EST ED HIV 1/2 ANTIBODY/ANTIGEN SCREEN WITH REFLEX TO HIV I/II DIFFERENTIATION STAT 03/30/2023 9:03 PM EST from Last 3 Months or Most Recently Relevant to Health Maintenance Results * ED HIV 1/2 Antibody/Antigen Screen w/Reflex to HIV 1/2 Differentiation (03/30/2023 9:03 PM EST) Pathologist [facility] HIV 1 & 2 Antibody/Antigen Screen Non Reactive Non Reactive 03/30/2023 10:02 PM EST [facility] Comment:Screening for HIV 1 & 2 antibodies, and P24 antigen is NONREACTIVE. No confirmatory testing is required. Blood Venous blood specimen / Unknown Venipuncture / Unknown 03/30/2023 9:03 PM EST 03/30/2023 9:20 PM EST Grabiel Chavez MD LAB BLOOD ORDERABLES Final Result [facility] [address] [place] [address] * Hepatitis C Antibody - ED (03/30/2023 9:03 PM EST) Pathologist [facility] Hepatitis C Antibody Negative Negative 03/30/2023 10:02 PM EST [facility] Blood Venous blood specimen / Unknown Venipuncture / Unknown 03/30/2023 9:03 PM EST 03/30/2023 9:20 PM EST Grabiel Chavez MD LAB BLOOD ORDERABLES Final Result Performing Organization Address City/State/[facility] Co de Phone Number [facility] [address] [place] [address] from Last 3 Months or Most Recently Relevant to Health Maintenance Insurance [facility] MEDICAID Care Teams Brake Press Operator Relationship Specialty Start Date End Date Jenn Huffman APRN [address] [facility] [address] [place] [address] PCP - General 03/30/23
--- OUTSIDE RECORDS SUMMARY | 2025-02-27 13:27 | XMS_ITS | Patient Health Record ---
Author Organization [facility] Address [address] [place] [address] Care Team Providers Care Recooperer Name Role Phone Julian Morales Primary Care Provider ElderJosefinaLolita coppolai Unavailable [phone] Julian Morales Unavailable Unavailable Migration, Provider Unavailable Unavailable Allergies No Known Allergies Reason For Referral No Information Medications Medication SIG (Take, Route, Frequency, Duration) [...] day PRN; Duration: 30 days 02/21/2022 Active Lisinopril 20 MG 1 tab(s) orally once a day; Duration: 30 day(s) Active Ibuprofen 800 MG 1 tab(s) orally 3 ti mes a day; Duration: 30 day(s) prn Active Social History Tobacco Use: Social History Observation Description Date Details (start date - stop date) Current Smoker NA - NA Smoking: Question Answer Notes Are you a: current smoker How often do you smoke cigarettes? some days, bu t not every day How many cigarettes a day do you smoke? 5 or les s How soon after you wake up d o you smoke your first cigarette? after 60 min Are you interested in quitting? Thinking about q uitting Additional Findings: Tobacco User Light cigarett e smoker ((1-9 cigs/day) Problems Problem Type SNOMED Code ICD Code Onset Dates Problem Status W/U Status Risk Notes Problem Essential hypertension (11333725) Essential (primary) hypertension (I10) Active confirmed Problem Seasonal allergy (932656624) Seasonal allergies (J30.2) Active confirmed Problem Rosacea (291813883) Rosacea (L71.9) Active confirmed Problem Generalized anxiety disorder (73920510) ADAN (generalized anxiety disorder) (F41.1) Active confirmed Problem Raynaud's disease (449771908) Raynaud's disease without gangrene (I73.00) Active confirmed Problem Ethanol abuse (42647200) ETOH abuse (F10.10) Active confirmed Encounters Encounter Location Date Provider Diagnosis [facility] [address] [place] [address] 08/14/2024 Provider Migration Rosacea L71.9 ; Strain [...] disorder) (ICD-10 - F41.1) Plan Of Treatment No Information Insurance Providers Payer Name Payer Address Payer Phone Subscriber Number Group Number Insured Name Patient Relationship to Insured Coverage Start Date Coverage End Date [employer] [place] [employer] [address] [address] [place] [address] [phone] [id number] Parisa Richardson Self - patient is the insured Medical (General) History Medical History History ICD Code HTN Anxiety Surgical History Surgery Date(Month/Year) Tubal ligation 2009 Hospitalization History Reason Date(Month/Year) Meningitis 2011 Child 2007
[2025-02-27 13:38] VITALS: BP 146/102; PULSE 90; RESP 20; TEMP 36.8; O2SAT 100
== END 2025-02-27 13:41 | disposition home or self-care (01) ==
PROVIDERS: Emergency Provider Student in an Organized Health Care Education/Training Program; PCP Nurse Practitioner Family
DX: Z00.8 Encounter for other general examination (principal)
CPT/HCPCS: 99282